=== PATIENT | male | born 1980 | race African-American/Black ===

== ENCOUNTER 2019-01-14 19:05 | Emergency (ER) | payer MEDICAID, OTHER ==
[~2019-01-14] VITALS: Ht 188 cm; Wt 82.1 kg
[2019-01-14 19:37] VITALS: BP 122/78
--- NOTE | 2019-01-14 19:56 | NUR ---
RADIOLOGY AT BEDSIDE FOR XRAY
== END 2019-01-14 20:42 | disposition home or self-care (01) ==
LOC: ER 19:10
DX: M54.2 Cervicalgia (principal); M54.6 Pain in thoracic spine; R07.89 Other chest pain; V49.49XA Driver injured in collision with other motor vehicles in traffic accident, initial encounter; Y93.89 Activity, other specified; Y92.488 Other paved roadways as the place of occurrence of the external cause; Y99.8 Other external cause status
CPT/HCPCS: 71045-TC